=== PATIENT | female | born 1995 | race Caucasian/White ===

== ENCOUNTER 2021-08-18 11:08 | Emergency (ER) | payer MEDICAID ==
[~2021-08-18] VITALS: Ht 172.7 cm; Wt 50.0 kg
[2021-08-18 12:10] LABS: BASOPHILS % (AUTO) 0.4 % (0.0-2.0); EOSINOPHILS % (AUTO) 1.1 % (1.0-6.0); HEMATOCRIT 36.5 % (36-46); HEMOGLOBIN 12.4 g/dL (12.0-16.0); LYMPHOCYTES % (AUTO) 22.4 % (22.0-44.0); MEAN CORPUSCULAR HEMOGLOBIN 30.2 pg (26.0-34.0); MEAN CORPUSCULAR VOLUME 89 fL (80-100); MONOCYTES # (AUTO) 0.6 K/uL (0.1-1.0); MONOCYTES % (AUTO) 12.6 % (2.0-9.0); NEUTROPHILS # (AUTO) 2.9 K/uL (1.8-7.7); NEUTROPHILS % (AUTO) 63.5 % (40.0-70.0); PLATELET COUNT (AUTO) 226 K/uL (150-450); RED BLOOD CELL COUNT(AUTO) 4.11 MIL/uL (4.00-5.20); RED CELL DISTRIBUTION WIDTH 12.9 % (11.5-14.5)
[2021-08-18 12:17] LABS: ANION GAP 10 mmol/L (8-16); CALCIUM, TOTAL 8.6 mg/dL (8.8-10.5); CARBON DIOXIDE 28 mmol/L (22-29); CHLORIDE 103 mmol/L (98-107); CREATININE 0.73 mg/dL (0.60-1.30); GLOMERULAR FILTR. RATE CALC > 60 mL/min (>60); GLUCOSE,RANDOM 97 mg/dL (70-110); POTASSIUM 3.8 mmol/L (3.5-5.1); SODIUM SERUM 141 mmol/L (136-145); UREA NITROGEN, BLOOD 4 mg/dL (7-18)
[2021-08-18 12:28] LABS: ALANINE AMINOTRANSFERASE 16 U/L (12-78); ALKALINE PHOSPHATASE 44 U/L (46-116); ASPARTATE AMINOTRANSFERASE 15 U/L (15-37); BILIRUBIN,TOTAL 0.4 mg/dL (0.1-1.0); TOTAL PROTEIN, SERUM 7.1 g/dL (6.4-8.2)
[2021-08-18 13:23] VITALS: BP 120/84
== END 2021-08-18 13:37 | disposition home or self-care (01) ==
LOC: EMS 11:19
DX: R51.9 Headache, unspecified (principal); F29 Unspecified psychosis not due to a substance or known physiological condition
CPT/HCPCS: 36415; 70450; 80053; 85025; 99284; G0480

== ENCOUNTER 2023-04-17 04:24 | Emergency (ER) | payer MEDICAID ==
[~2023-04-17] VITALS: Ht 170.2 cm; Wt 57.0 kg
[2023-04-17 04:56] LABS: COVID AG,FIA SOURCE NASOPHARYNGEAL
[2023-04-17 04:56] LABS: BASOPHILS % (AUTO) 0.8 % (0.0-2.0); EOSINOPHILS % (AUTO) 2.9 % (1.0-6.0); HEMATOCRIT 35.2 % (36-46); HEMOGLOBIN 11.6 g/dL (12.0-16.0); LYMPHOCYTES # (AUTO) 1.5 K/uL (1.0-4.8); LYMPHOCYTES % (AUTO) 30.6 % (22.0-44.0); MEAN CORPUSCULAR HEMOGLOBIN 26.8 pg (26.0-34.0); MEAN CORPUSCULAR HGB CONC 32.8 G/dL (31.0-37.0); MEAN CORPUSCULAR VOLUME 82 fL (80-100); MONOCYTES # (AUTO) 0.4 K/uL (0.1-1.0); MONOCYTES % (AUTO) 9.1 % (2.0-9.0); NEUTROPHILS # (AUTO) 2.8 K/uL (1.8-7.7); NEUTROPHILS % (AUTO) 56.6 % (40.0-70.0); PLATELET COUNT (AUTO) 266 K/uL (150-450); RED BLOOD CELL COUNT(AUTO) 4.31 MIL/uL (4.00-5.20); RED CELL DISTRIBUTION WIDTH 15.2 % (11.5-14.5)
[2023-04-17 05:07] LABS: ANION GAP 8 mmol/L (8-16); CALCIUM, TOTAL 9.2 mg/dL (8.8-10.5); CARBON DIOXIDE 26 mmol/L (22-29); CHLORIDE 104 mmol/L (98-107); CREATININE 0.88 mg/dL (0.60-1.30); GLOMERULAR FILTR. RATE CALC > 60 mL/min (>60); GLUCOSE,RANDOM 106 mg/dL (70-110); POTASSIUM 4.1 mmol/L (3.5-5.1); SODIUM SERUM 138 mmol/L (136-145)
[2023-04-17 05:27] LABS: ALANINE AMINOTRANSFERASE 9 U/L (12-78); ALKALINE PHOSPHATASE 54 U/L (46-116); ASPARTATE AMINOTRANSFERASE 10 U/L (15-37); BILIRUBIN,TOTAL 0.2 mg/dL (0.1-1.0); HCG,QUANTITATIVE < 1 mIU/mL (0-6); TOTAL PROTEIN, SERUM 7.6 g/dL (6.4-8.2)
[2023-04-17 07:52] LABS: AMPHET/METH SCREEN,URINE NEGATIVE (NEGATIVE); BARBITURATE SCREEN, URINE NEGATIVE (NEGATIVE); BENZODIAZEPINES SCREEN,URINE NEGATIVE (NEGATIVE); CANNABINOID SCREEN,URINE NEGATIVE (NEGATIVE); COCAINE SCREEN,URINE NEGATIVE (NEGATIVE); METHADONE SCREEN, URINE NEGATIVE (NEGATIVE); OPIATE SCREEN,URINE NEGATIVE (NEGATIVE); PHENCYCLIDINE SCREEN,URINE NEGATIVE (NEGATIVE)
[2023-04-17 08:40] VITALS: BP 122/81
== END 2023-04-17 08:42 | disposition home or self-care (01) ==
LOC: EMS 04:25
DX: F41.9 Anxiety disorder, unspecified (principal); R06.4 Hyperventilation; Z91.018 Allergy to other foods; Z20.822 Contact with and (suspected) exposure to COVID-19
CPT/HCPCS: 99285; 70450; 71045; 87426; 80053; 84484; 84702; 85025; 36415; 93005; 80307 ×2; G0480

== ENCOUNTER 2024-04-16 10:03 | Emergency (ER) | payer MEDICAID ==
[~2024-04-16] VITALS: Ht 170.2 cm; Wt 56.8 kg
[2024-04-16 10:06] VITALS: BP 122/73; PULSE 122; RESP 18; TEMP 98.5
[2024-04-16] MEDS ORDERED: LEVE750T66 PO ×2 (10:09→13:19)
[2024-04-16] MEDS ORDERED: LAMO200T10 PO ×2 (10:09→13:19)
[2024-04-16] MEDS ORDERED: LevETIRAcetam 1,000 MG in DEXTROSE 5%-WATER 100 ML IV ONE (11:45)
[2024-04-16] MEDS ORDERED: LITH300T4 PO (11:47)
[2024-04-16] MEDS ORDERED: OLAN15TA36 PO (11:47)
[2024-04-16] MEDS: LamoTRIgine 100 MG TABLET PO ONE (12:01)
[2024-04-16] MEDS: LevETIRAcetam 1,500 MG in DEXTROSE 5%-WATER 100 ML IV ONE (12:01)
[2024-04-16 12:11] LABS: BASOPHILS % (AUTO) 0.5 % (0.0-2.0); HEMOGLOBIN 11.5 g/dL (12.0-16.0); LYMPHOCYTES # (AUTO) 1.1 K/uL (1.0-4.8); LYMPHOCYTES % (AUTO) 14.2 % (22.0-44.0); MEAN CORPUSCULAR HEMOGLOBIN 24.4 pg (26.0-34.0); MEAN CORPUSCULAR HGB CONC 31.9 G/dL (31.0-37.0); MEAN CORPUSCULAR VOLUME 76 fL (80-100); MONOCYTES # (AUTO) 0.7 K/uL (0.1-1.0); MONOCYTES % (AUTO) 8.4 % (2.0-9.0); NEUTROPHILS % (AUTO) 75.9 % (40.0-70.0); PLATELET COUNT (AUTO) 411 K/uL (150-450); RED BLOOD CELL COUNT(AUTO) 4.72 MIL/uL (4.00-5.20); RED CELL DISTRIBUTION WIDTH 15.9 % (11.5-14.5); WHITE BLOOD COUNT (AUTO) 7.9 K/uL (4.5-11.0)
[2024-04-16 12:17] LABS: ANION GAP 11 mmol/L (8-16); CALCIUM, TOTAL 9.8 mg/dL (8.8-10.5); CARBON DIOXIDE 27 mmol/L (22-29); CHLORIDE 100 mmol/L (98-107); CREATININE 0.76 mg/dL (0.60-1.30); GLOMERULAR FILTR. RATE CALC > 60 mL/min (>60); GLUCOSE,RANDOM 100 mg/dL (70-110); POTASSIUM 3.1 mmol/L (3.5-5.1); SODIUM SERUM 138 mmol/L (136-145); UREA NITROGEN, BLOOD 5 mg/dL (7-18)
== END 2024-04-16 14:18 | disposition home or self-care (01) ==
LOC: EMS 10:03
DX: G40.909 Epilepsy, unspecified, not intractable, without status epilepticus (principal); Z91.018 Allergy to other foods
CPT/HCPCS: 99284; 96365; 80048; 84703; 85025; 36415; J0712; J7060

== ENCOUNTER 2024-06-17 10:14 | Inpatient (IN) | payer MEDICAID ==
[~2024-06-17] VITALS: Ht 170.2 cm; Wt 53.5 kg
[~2024-06-17 10:14] MED LIST: LAMO200T10 PO; LEVE750T66 PO; LITH300T4 PO; OLAN15TA36 PO
[2024-06-17 11:33] LABS: BASOPHILS % (AUTO) 0.9 % (0.0-2.0); EOSINOPHILS % (AUTO) 1.3 % (1.0-6.0); HEMATOCRIT 35.1 % (36-46); HEMOGLOBIN 11.1 g/dL (12.0-16.0); LYMPHOCYTES # (AUTO) 1.5 K/uL (1.0-4.8); LYMPHOCYTES % (AUTO) 30.9 % (22.0-44.0); MEAN CORPUSCULAR HEMOGLOBIN 23.9 pg (26.0-34.0); MEAN CORPUSCULAR HGB CONC 31.7 G/dL (31.0-37.0); MEAN CORPUSCULAR VOLUME 76 fL (80-100); MONOCYTES # (AUTO) 0.7 K/uL (0.1-1.0); MONOCYTES % (AUTO) 14.7 % (2.0-9.0); NEUTROPHILS # (AUTO) 2.5 K/uL (1.8-7.7); NEUTROPHILS % (AUTO) 52.2 % (40.0-70.0); RED BLOOD CELL COUNT(AUTO) 4.65 MIL/uL (4.00-5.20); RED CELL DISTRIBUTION WIDTH 16.8 % (11.5-14.5); WHITE BLOOD COUNT (AUTO) 4.8 K/uL (4.5-11.0)
[2024-06-17 11:43] LABS: ANION GAP 10 mmol/L (8-16); CALCIUM, TOTAL 9.2 mg/dL (8.8-10.5); CARBON DIOXIDE 27 mmol/L (22-29); CHLORIDE 99 mmol/L (98-107); CREATININE 0.87 mg/dL (0.60-1.30); GLOMERULAR FILTR. RATE CALC > 60 mL/min (>60); GLUCOSE,RANDOM 92 mg/dL (70-110); POTASSIUM 3.2 mmol/L (3.5-5.1); SODIUM SERUM 136 mmol/L (136-145); UREA NITROGEN, BLOOD 10 mg/dL (7-18)
[2024-06-17 11:49] LABS: ALANINE AMINOTRANSFERASE 14 U/L (12-78); ALBUMIN 4.1 g/dL (3.4-5.0); ALKALINE PHOSPHATASE 76 U/L (46-116); ASPARTATE AMINOTRANSFERASE 20 U/L (15-37); BILIRUBIN,TOTAL 0.6 mg/dL (0.1-1.0); TOTAL PROTEIN, SERUM 8.4 g/dL (6.4-8.2)
[2024-06-17 11:50] LABS: PLATELET COUNT (AUTO) 394 K/uL (150-450)
[2024-06-17 11:51] LABS: RBC MORPHOLOGY COMMENT ABNORMAL RBC MORPH
[2024-06-17 12:00] LABS: ALCOHOL, BLOOD (SERUM) < 3 mg/dL (0-10)
[2024-06-17 13:15] LABS: COVID AG,FIA SOURCE NASAL SWAB
[2024-06-17 13:37] LABS: SARS-COV2 (COVID) ANTIGEN,FIA Negative (Negative)
[2024-06-17] MEDS: POTASSIUM CHLORIDE 20 MEQ ER TABLET PO ONE ×2 (13:43→22:22)
[2024-06-17 16:01] VITALS: O2SAT 99
[2024-06-17 16:37] VITALS: BP 123/79; PULSE 95; RESP 18; TEMP 98.5; O2SAT 99
[2024-06-17] MEDS: LamoTRIgine 100 MG TABLET PO SCH (22:00)
[2024-06-17 22:28] VITALS: BP 110/73; PULSE 105; RESP 18; TEMP 98.2; O2SAT 99
[2024-06-18 07:34] LABS: APPEARANCE,URINE CLEAR (CLEAR); BILIRUBIN,URINE NEGATIVE (NEGATIVE); COLOR,URINE YELLOW (YELLOW); GLUCOSE, URINE (UA) NEGATIVE (NEGATIVE); LEUKOCYTE ESTERASE ,URINE NEGATIVE (NEGATIVE); NITRATE,URINE NEGATIVE (NEGATIVE); OCCULT BLOOD,URINE MODERATE (NEGATIVE); PROTEIN,URINE 100-200,SEE CONFIRM mg/dL (NEGATIVE); SPECIFIC GRAVITIY, URINE 1.043 (1.003-1.030)
[2024-06-18 07:41] LABS: ALCOHOL, URINE DRUG SCREEN NEGATIVE (NEGATIVE); AMPHET/METH SCREEN,URINE NEGATIVE (NEGATIVE); BARBITURATE SCREEN, URINE NEGATIVE (NEGATIVE); BENZODIAZEPINES SCREEN,URINE NEGATIVE (NEGATIVE); CANNABINOID SCREEN,URINE NEGATIVE (NEGATIVE); COCAINE SCREEN,URINE NEGATIVE (NEGATIVE); METHADONE SCREEN, URINE NEGATIVE (NEGATIVE); OPIATE SCREEN,URINE NEGATIVE (NEGATIVE); PHENCYCLIDINE SCREEN,URINE NEGATIVE (NEGATIVE)
[2024-06-18 07:48] LABS: SULFOSALICYLIC ACID,URINE 2+ (Negative)
[2024-06-18 07:49] LABS: WBC,URINE 0-2 /HPF (0-5)
[2024-06-18 07:50] LABS: BACTERIA,URINE Moderate /HPF (None Seen); SQUAMOUS EPITHELIAL CELL,UR Many /LPF (None Seen)
[2024-06-18 08:21] LABS: BASOPHILS % (AUTO) 0.7 % (0.0-2.0); EOSINOPHILS % (AUTO) 1.9 % (1.0-6.0); HEMOGLOBIN 9.9 g/dL (12.0-16.0); LYMPHOCYTES # (AUTO) 1.5 K/uL (1.0-4.8); LYMPHOCYTES % (AUTO) 41.8 % (22.0-44.0); MEAN CORPUSCULAR HEMOGLOBIN 24.2 pg (26.0-34.0); MEAN CORPUSCULAR HGB CONC 31.8 G/dL (31.0-37.0); MEAN CORPUSCULAR VOLUME 76 fL (80-100); MONOCYTES # (AUTO) 0.5 K/uL (0.1-1.0); MONOCYTES % (AUTO) 13.3 % (2.0-9.0); NEUTROPHILS # (AUTO) 1.6 K/uL (1.8-7.7); NEUTROPHILS % (AUTO) 42.3 % (40.0-70.0); PLATELET COUNT (AUTO) 340 K/uL (150-450); RED BLOOD CELL COUNT(AUTO) 4.08 MIL/uL (4.00-5.20); RED CELL DISTRIBUTION WIDTH 16.6 % (11.5-14.5); WHITE BLOOD COUNT (AUTO) 3.7 K/uL (4.5-11.0)
[2024-06-18 08:43] LABS: ALANINE AMINOTRANSFERASE 12 U/L (12-78); ALBUMIN 3.5 g/dL (3.4-5.0); ALKALINE PHOSPHATASE 66 U/L (46-116); ANION GAP 8 mmol/L (8-16); ASPARTATE AMINOTRANSFERASE 16 U/L (15-37); BILIRUBIN,TOTAL 0.6 mg/dL (0.1-1.0); CALCIUM, TOTAL 8.7 mg/dL (8.8-10.5); CARBON DIOXIDE 28 mmol/L (22-29); CHLORIDE 104 mmol/L (98-107); CHOL/HDL RATIO 2.6 (3.9-5.7); CHOLESTEROL 132 mg/dL (131-200); CREATININE 0.95 mg/dL (0.60-1.30); GLOMERULAR FILTR. RATE CALC > 60 mL/min (>60); GLUCOSE,RANDOM 71 mg/dL (70-110); HDL CHOLESTEROL 50 mg/dL (40-60); LDL CHOL (CALC.) 71 mg/dL (0-130); POTASSIUM 3.8 mmol/L (3.5-5.1); SODIUM SERUM 140 mmol/L (136-145); TOTAL PROTEIN, SERUM 7.3 g/dL (6.4-8.2); TRIGLYCERIDES 56 mg/dL (15-150); UREA NITROGEN, BLOOD 10 mg/dL (7-18)
[2024-06-18] MEDS ORDERED: IBUPROFEN 600 MG TABLET PO PRN (08:45)
[2024-06-18] MEDS ORDERED: DOCUSATE SODIUM 100 MG CAPSULE PO PRN (08:45)
[2024-06-18] MEDS ORDERED: ALBUTEROL SULFATE HFA 90 MCG/PUFF 8 GM INHALER IH PRN (08:45)
[2024-06-18] MEDS ORDERED: BACITRACIN 28 GM OINTMENT TP PRN (08:45)
[2024-06-18] MEDS ORDERED: MAG HYDROX/ALUMINUM HYD/SIMETH ES 30 ML SUSPENSION UDCUP PO PRN (08:45)
[2024-06-18] MEDS ORDERED: OMEPRAZOLE 20 MG CAPSULE PO PRN (08:45)
[2024-06-18] MEDS ORDERED: PETROLATUM,WHITE 28 GM JELLY TP PRN (08:45)
[2024-06-18] MEDS ORDERED: LOPERAMIDE HCL 2 MG CAPSULE PO PRN (08:45)
[2024-06-18] MEDS ORDERED: MAGNESIUM HYDROXIDE SUSPENSION 30 ML UDCUP PO PRN (08:45)
[2024-06-18] MEDS ORDERED: CloNIDine HCL 0.1 MG TABLET PO PRN (08:45)
[2024-06-18] MEDS ORDERED: LevETIRAcetam 250 MG TABLET PO SCH (09:00)
[2024-06-18] MEDS: SULFAMETHOX/TRIMETH DS 800-160 MG/TABLET PO SCH (09:00)
[2024-06-18] MEDS: LevETIRAcetam 500 MG TABLET PO SCH (09:00)
[2024-06-18 10:26] VITALS: RESP 18
[2024-06-18] MEDS: LITHIUM CARBONATE 300 MG CAPSULE PO SCH (16:17)
[2024-06-18] MEDS: OLANZapine 7.5 MG TABLET PO SCH (20:49)
[2024-06-18 21:23] VITALS: BP 141/78; PULSE 88; RESP 18; TEMP 98.4; O2SAT 98
[2024-06-19] MEDS: THIAMINE 100 MG TABLET PO SCH (09:00)
[2024-06-19] MEDS: MULTIVITAMINS WITH MINERALS, THERAPEUTIC TABLET PO SCH (09:00)
[2024-06-19 12:15] VITALS: BP 108/66; PULSE 90; RESP 16; TEMP 97.6; O2SAT 99
[2024-06-19] MEDS: ONDANSETRON 4 MG TABLET PO PRN (18:28)
[2024-06-19 20:32] VITALS: RESP 18
[2024-06-20 09:10] VITALS: BP 116/81; PULSE 78; RESP 18; TEMP 98.1; O2SAT 95
[2024-06-20 21:08] VITALS: RESP 18
[2024-06-21 08:52] VITALS: BP 105/75; PULSE 70; RESP 17; TEMP 97.7; O2SAT 97
[2024-06-21 21:05] VITALS: BP 120/72; PULSE 92; RESP 18; TEMP 98.3; O2SAT 96
[2024-06-22 08:00] VITALS: BP 101/61; PULSE 90; RESP 18; TEMP 98.3
[2024-06-22] MEDS: LORazepam 2 MG TABLET PO PRN (12:05)
[2024-06-22 20:11] VITALS: RESP 18
[2024-06-23 08:16] VITALS: BP 98/62; PULSE 95; RESP 16; TEMP 98.2; O2SAT 99
[2024-06-23 20:34] VITALS: RESP 17; TEMP 97.6
[2024-06-24 15:46] VITALS: RESP 18
[2024-06-24 21:19] VITALS: BP 89/57; PULSE 103; RESP 18; TEMP 98.5; O2SAT 100
[2024-06-25 08:23] VITALS: BP 99/61; PULSE 79; RESP 17; TEMP 97.9; O2SAT 96
[2024-06-25 23:10] VITALS: BP 99/59; PULSE 92; RESP 18; TEMP 98.4; O2SAT 98
[2024-06-26 11:22] VITALS: BP 102/67; PULSE 79; RESP 19; TEMP 97.8; O2SAT 97
[2024-06-26 22:17] VITALS: BP 90/51; PULSE 87; RESP 18; O2SAT 98
[2024-06-27 08:40] VITALS: BP 92/58; PULSE 93; RESP 18; TEMP 97.5; O2SAT 100
[2024-06-27 13:25] VITALS: BP 92/48; PULSE 93; RESP 18; TEMP 97.5; O2SAT 100
[2024-06-27 21:20] VITALS: BP 104/65; PULSE 85; RESP 18; TEMP 97.2; O2SAT 98
[2024-06-28 09:39] VITALS: BP 106/68; PULSE 97; RESP 17; O2SAT 100
[2024-06-28 20:11] VITALS: BP 97/61; PULSE 87; RESP 18; TEMP 97.6; O2SAT 99
[2024-06-29 08:21] VITALS: BP 91/58; PULSE 76; RESP 18; TEMP 98.1; O2SAT 99
[2024-06-29 20:18] VITALS: BP 103/64; PULSE 110; RESP 18; TEMP 98.5; O2SAT 97
[2024-06-30 15:30] VITALS: BP 98/58; PULSE 78; RESP 18; TEMP 98.9; O2SAT 98
[2024-06-30 21:08] VITALS: BP 102/60; PULSE 82; RESP 18; TEMP 98.6; O2SAT 97
[2024-07-01 08:15] VITALS: BP 98/58; PULSE 93; RESP 17; TEMP 97.9; O2SAT 98
[2024-07-01 21:35] VITALS: BP 110/66; PULSE 100; RESP 19; TEMP 98.5; O2SAT 97
[2024-07-02 08:00] VITALS: BP 97/65; PULSE 85; RESP 18; TEMP 97.7
[2024-07-02 21:46] VITALS: BP 138/77; PULSE 74; RESP 18; TEMP 98; O2SAT 97
[2024-07-03 10:00] VITALS: BP 109/74; PULSE 77; RESP 18; TEMP 98.1; O2SAT 97
[2024-07-03 23:29] VITALS: BP 115/68; PULSE 85; RESP 18; TEMP 98.1; O2SAT 97
[2024-07-04 09:11] VITALS: BP 96/59; PULSE 87; RESP 16; TEMP 98.3; O2SAT 97
[2024-07-04 22:28] VITALS: BP 108/66; PULSE 69; RESP 18; TEMP 98.9; O2SAT 96
[2024-07-05 08:00] VITALS: BP 104/69; PULSE 80; RESP 18; TEMP 98.6
[2024-07-05 21:04] VITALS: BP 103/68; PULSE 75; RESP 18; TEMP 97.9
[2024-07-06 09:17] VITALS: BP 103/63; PULSE 102; RESP 18; TEMP 98.8; O2SAT 98
[2024-07-06 20:25] VITALS: BP 110/70; PULSE 97; RESP 17; TEMP 97.4; O2SAT 98
[2024-07-06 20:33] VITALS: BP 103/73; PULSE 103; RESP 18; TEMP 97.4; O2SAT 98
[2024-07-07 09:39] VITALS: BP 106/67; PULSE 74; RESP 18; TEMP 97.6; O2SAT 98
[2024-07-07 22:22] VITALS: BP 111/76; PULSE 90; RESP 16; TEMP 98.1; O2SAT 98
[2024-07-08 09:19] VITALS: BP 116/63; PULSE 72; RESP 16; O2SAT 97
[2024-07-08 20:59] VITALS: BP 123/79; PULSE 94; RESP 18; TEMP 98.5; O2SAT 99
[2024-07-08] MEDS: ZOLPIDEM TARTRATE 10 MG TABLET PO PRN (21:42)
[2024-07-08] MEDS: HALOPERIDOL 5 MG TABLET PO PRN (21:42)
[2024-07-09 09:45] VITALS: BP 101/63; PULSE 96; RESP 16; TEMP 98.4; O2SAT 96
[2024-07-09 21:07] VITALS: BP 115/68; PULSE 85; RESP 18; TEMP 98.1; O2SAT 97
[2024-07-10] MEDS: ACETAMINOPHEN 325 MG TABLET PO PRN (08:51)
[2024-07-10 08:56] VITALS: BP 100/65; PULSE 91; RESP 18; TEMP 99.1; O2SAT 97
[2024-07-10 09:50] VITALS: TEMP 98.6
[2024-07-10 11:04] LABS: COVID AG,FIA SOURCE NASAL SWAB
[2024-07-10 11:24] LABS: SARS-COV2 (COVID) ANTIGEN,FIA Negative (Negative)
[2024-07-10 20:40] VITALS: BP 101/63; PULSE 77; RESP 18; TEMP 97.1; O2SAT 98
[2024-07-11 09:52] VITALS: BP 105/69; PULSE 79; RESP 18; O2SAT 97
[2024-07-11 10:45] VITALS: BP 103/63; PULSE 108; RESP 18; TEMP 98.7; O2SAT 98
[2024-07-11 12:12] LABS: COVID AG,FIA SOURCE NASAL SWAB
[2024-07-11 12:33] LABS: SARS-COV2 (COVID) ANTIGEN,FIA Negative (Negative)
[2024-07-11] MEDS: BENZOCAINE/MENTHOL LOZENGE PO PRN (14:00)
[2024-07-11 21:53] VITALS: BP 117/75; PULSE 65; RESP 18; TEMP 97.6; O2SAT 98
[2024-07-12 09:49] VITALS: BP 92/60; PULSE 92; RESP 20; O2SAT 98
[2024-07-12 20:00] VITALS: BP 101/65; PULSE 70; RESP 18; TEMP 98; O2SAT 98
[2024-07-12] MEDS: OLANZapine 10 MG TABLET PO SCH (21:25)
[2024-07-13 08:02] VITALS: BP 128/79; PULSE 81; RESP 18; TEMP 97.8; O2SAT 98
[2024-07-13 20:19] VITALS: BP 105/64; PULSE 100; RESP 18; TEMP 98.5; O2SAT 99
[2024-07-14 09:09] VITALS: BP 115/73; PULSE 96; RESP 18; O2SAT 96
[2024-07-14 20:26] VITALS: BP 121/70; PULSE 85; RESP 18; TEMP 97.9
[2024-07-14] MEDS: LITHIUM CITRATE SOLUTION 8 MEQ/5 ML [8 MEQ = 300 MG] UDCUP PO SCH (23:22)
[2024-07-15 08:00] VITALS: BP 100/59; PULSE 61; RESP 18; TEMP 97.8
[2024-07-15] MEDS ORDERED: LAMO-24 PO (14:51)
[2024-07-15] MEDS ORDERED: LEVE-71 PO (14:51)
[2024-07-15] MEDS ORDERED: LITH8SOL8 PO (14:51)
[2024-07-15] MEDS ORDERED: OLAN10TA74 PO (14:51)
== END 2024-07-15 17:35 | disposition home or self-care (01) | DRG 750 ==
LOC: EMS 10:20 → 3EC 16:06 → 3EI 07-01 19:10
PROVIDERS: ADMIT Psychiatry & Neurology Psychiatry; ATTEND Psychiatry & Neurology Psychiatry
DX: F25.0 Schizoaffective disorder, bipolar type (principal); G40.909 Epilepsy, unspecified, not intractable, without status epilepticus; D64.9 Anemia, unspecified; E87.6 Hypokalemia; F41.9 Anxiety disorder, unspecified; G47.00 Insomnia, unspecified; Z20.822 Contact with and (suspected) exposure to COVID-19; K59.00 Constipation, unspecified; N39.0 Urinary tract infection, site not specified; G47.09 Other insomnia; F94.0 Selective mutism; Z91.018 Allergy to other foods; R45.6 Violent behavior
CPT/HCPCS: 80048; 80053; 80061; 80076; 80178; 80307; 81001; 81002; 83036; 84703; 85025; 87086; 87186; 99285; G0480; G0482; Q0162